=== PATIENT | female | born 1970 | race American Indian/Alaskan Native ===

== ENCOUNTER 2021-02-17 06:03 | Day surgery (SDC) | payer BC ==
[2021-02-14 10:40] LABS: Hematocrit 36.3 % (30.3-42.9); Hemoglobin 11.5 gm/dl (10.1-14.3); Mean Corpuscular HGB Conc 32 % (30-34); Mean Corpuscular Volume 84 fl (79-97); Platelet Count 115 K/mm3 (140-440); Red Cell Distribution Width 18.9 % (13.2-15.2)
[2021-02-14 10:42] LABS: Blood Urea Nitrogen 8 mg/dL (7-17); Calcium 9.6 mg/dL (8.4-10.2); Hemolysis Index 0
[2021-02-14 11:06] LABS: BUN/Creatinine Ratio 20
--- NOTE | 2021-02-14 13:45 | History and Physical Report ---
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 I asked was it fibroids and pt states she was told she had fibroids but also these "growths". She currently c/o having heavier bleeding over the last year prior to covid that has gotten progressively heavier. She is s/p SIS which showed an endometrial mass. Embx was negative for hyperplasia or malignancy. Pt here today for pre op for myosure removal of endometrial mass. She also was noted to have 4 to 5 cm endometrial fibroids that she does not wish to treat at this time surgically but is planning for placment of a Mirena device as she is recenly d/c ocps. All risk/benefits/alternatives were d/w pt and questions were addressed and answered. Consent signed and place on the chart. Vital Signs: Patient Profile: 50 Years Old Female LMP: 01/10/2021 Height: 62 inches Weight: 144 pounds BMI: 26.34 Temp: 97.6 degrees F BP sittin / 80 (left arm) Menstrual History: LMP (date): 01/10/2021 Past History : 5 Term Births: 3 Living Children: 3 Para: 3 Elect. 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 of genital herpes: no Hx of STD: None Active Medications (reviewed today): INHALER () CENTRUM () LO ESTRIN () LAXITIVE PRN () IRON () SIMVASTATIN TABLET (SIMVASTATIN TABS) GLIPIZIDE TABLET (GLIPIZIDE TABS) METFORMIN () Current Allergies (reviewed today): No known allergies Past Medical History: Reviewed history from 01/09/2021 and no changes required: Anemia Diabetes Fibroids Hyperlipidemia Past Surgical History: positive Family History Summary: Reviewed history and no changes required: 02/14/2021 General Comments - FH: DM HTN liver Cirrhosis Social History: Reviewed history from 01/09/2021 and no changes required: Smoking History: Patient has never smoked. 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: other (see hpi) Family/Genetic History: other (see hpi) Social history: other (see hpi) Medications and Allergies Allergies Allergy/AdvReac Type Severity Reaction Status Date / Time No Known Allergies Allergy Unverified 02/12/21 15:48 Home Medications Medication Instructions Recorded Confirmed Last Taken Type Albuterol Mdi (or & Nicu Only) 2 puff PO Q6HR PRN 02/12/21 02/12/21 Unknown History [ProAir HFA Inhaler] Docusate Sodium [Dok] 100 mg PO DAILY PRN 02/12/21 02/12/21 Unknown History Dulaglutide [Trulicity] 1.5 mg SQ 1XW 02/12/21 02/12/21 Unknown History Ferrous Sulfate [Iron 325 MG] 325 mg PO TID 02/12/21 02/12/21 Unknown History Metformin HCl [metFORMIN] 1,000 mg PO BID 02/12/21 02/12/21 Unknown History Simvastatin 10 mg PO HS 02/12/21 02/12/21 Unknown History glipiZIDE [Glucotrol] 10 mg PO QDAY 02/12/21 02/12/21 Unknown History - Vital Signs Vital signs: Vital Signs Temp Pulse Resp BP Pulse Ox 98.6 F 81 20 147/93 99 02/14/21 09:00 02/14/21 09:00 02/14/21 09:00 02/14/21 09:00 02/14/21 09:00 Temp Pulse Resp BP Pulse Ox 98.6 F 81 20 147/93 99 02/14/21 09:00 02/14/21 09:00 02/14/21 09:00 02/14/21 09:00 02/14/21 09:00 - Physical Exam Breasts: Positive: deferred Cardiovascular: Normal S1, Normal S2 Lungs: Positive: Clear to auscultation, Normal air movement Abdomen: Positive: normal appearance, soft. Negative: distention, tenderness, guarding Genitourinary (Female): Positive: other (deferred until EUA) Results Result Diagrams: 02/14/21 06:00 02/14/21 06:00 Abnormal lab results 02/14/21 02/14/21 Range/Units 06:00 06:00 WBC 3.2 L (4.5-11.0) K/mm3 MCH 27 L (28-32) pg RDW 18.9 H (13.2-15.2) % Plt Count 115 L (140-440) K/mm3 Creatinine 0.4 L (0.6-1.2) mg/dL Glucose 105 H (65-100) mg/dL All other labs normal. Assessment and Plan - Patient Problems (1) Menometrorrhagia Status: Acute (2) Endometrial mass Status: Acute Plan to address problem: - to OR for hysteroscopy with myosure -consent signed and placed on the chart
[~2021-02-17 06:03] MED LIST: SODIUM CHLORIDE 0.9% IRR 1,500 ML BOTTLE IR ONE; SODIUM CHLORIDE 0.9% IRRIG SOLN 2000 ML IR ONE; ceFAZolin/Water 2 GM/20 ML 2 GM/20 ML SYRINGE IV NR
[2021-02-17] MEDS ORDERED: LACTATED RINGERS 1,000 ML ONE (06:20)
--- NOTE | 2021-02-17 07:01 | Anesthesia Day of Surgery ---
Anesthesia Day of Surgery - Day of Surgery Patient Examined: Yes Patient H&P Reviewed: Yes Patient is NPO: Yes
--- NOTE | 2021-02-17 07:01 | Anesthesia Consultation ---
Anesthesia Consult and Med Hx Date of service: 02/17/21 - Airway Anesthetic Teeth Evaluation: Good ROM Head & Neck: Adequate Mental/Hyoid Distance: Adequate Mallampati Class: Class II Intubation Access Assessment: Good - Pulmonary Exam CTA: Yes - Cardiac Exam Cardiac Exam: RRR - Pre-Operative Health Status ASA Pre-Surgery Classification: ASA2 Proposed Anesthetic Plan: General - Pulmonary Hx Asthma: Yes (Last used inhaler (approx) within last 2 months) - Central Nervous System Hx Psychiatric Problems: No - Gastrointestinal Hx Gastroesophageal Reflux Disease: Yes - Hematic Hx Anemia: Yes - Other Systems Hx Alcohol Use: Yes (Occas) Hx Cancer: No
[2021-02-17] MEDS ORDERED: LACTATED RINGERS 1,000 ML IV SCH ×2 (07:30→07:45)
[2021-02-17] MEDS ORDERED: SODIUM CHLORIDE 0.9% IRR 1,500 ML BOTTLE IR ONE (07:48)
[2021-02-17] MEDS ORDERED: SODIUM CHLORIDE 0.9% IRRIG SOLN 2000 ML IR ONE (07:48)
[2021-02-17] MEDS ORDERED: propofoL 200 MG/20 ML VIAL IV ONE (07:49)
[2021-02-17] MEDS ORDERED: KETOROLAC 30 MG/1 ML INJ ONE (07:49)
[2021-02-17] MEDS ORDERED: dexAMETHasone 20 MG/5 ML VIAL ONE (07:49)
[2021-02-17] MEDS ORDERED: LIDOCAINE MPF (2%) 20 MG/1 ML VIAL 5 ML ONE (07:49)
[2021-02-17] MEDS ORDERED: MIDAZOLAM 2 MG/2 ML INJ IV NR (08:00)
[2021-02-17] MEDS ORDERED: SODIUM CHLORIDE 0.9% 1000 ML 1,000 ML IV SCH (08:00)
[2021-02-17] MEDS ORDERED: KETAMINE/STERILE WATER 50 MG/ML SYRINGE ONE (08:00)
[2021-02-17] MEDS ORDERED: HYDROmorphone 1 MG/1 ML INJ IV PRN ×2 (08:30)
[2021-02-17] MEDS ORDERED: ONDANSETRON 4 MG/2 ML INJ IV PRN (08:30)
--- NOTE | 2021-02-17 08:40 | Operative Report ---
Operative Report Operative Report: Date of procedure: 02/17/2021 Pre-operative diagnosis: Metrorrhagia Menorrhagia Endometrial mass Post-operative diagnosis: Same Procedure name(s): 1. Hysteroscopy 2. MyoSure Surgeon: Hawa Coronado M.D. Soft Iron Inspector: DAYNE Anesthesia: General anesthesia LMA EBL: Minimal Urine output: 75 cc of clear urine out prior to the onset of the procedure Fluids: 700 mL Findings: Thickened endometrium upon entry and extending to the uterine fundus. Fluid deficit: Approximately 1100 mL Indications: Patient presents with intermenstrual bleeding. Patient was noted on saline infused sonogram to have what appeared an endometrial mass. All risk benefits and alternatives were discussed with the patient. Consents were signed and placed on the chart. Procedure: Patient was taken to the operating room where she was placed under general endotracheal anesthesia she was then prepped and draped in normal sterile fashion in dorsal lithotomy position with legs in Geoff stirrups. Straight catheterization of the bladder was performed at this time. Sterile speculum was placed inside of the vagina to visualize the entire cervix. The anterior lip of the cervix was grasped with a single-tooth tenaculum and the uterus was sounded to 9 cm. The cervix was then dilated in order to allow passage of the hysteroscope. Hysteroscopy yielded the above-stated findings. The Myosure device was then used to suction and remove all thickened tissue of the endometrium. While the uterine fundus was noted the ostia were not clearly seen due to the thickened tissue of the endometrium. At the end of the procedure the integrity of the cavity appeared to be intact without any preparations noted. All instruments were removed from the vagina and the cervix. Patient tolerated the procedure well. All counts were correct.
--- NOTE | 2021-02-17 08:41 | Short Stay Summary ---
Short Stay Documentation Date of service: 02/17/21 - History Social history: other (see hpi) - Allergies and Medications Current Medications: Allergies No Known Allergies Allergy (Unverified 02/12/21 15:48) Home Medications Medication Instructions Recorded Confirmed Last Taken Type Albuterol Mdi (or & Nicu Only) 2 puff PO Q6HR PRN 02/12/21 02/12/21 Unknown History [ProAir HFA Inhaler] Docusate Sodium [Dok] 100 mg PO DAILY PRN 02/12/21 02/17/21 02/16/21 09:00 History Dulaglutide [Trulicity] 1.5 mg SQ 1XW 02/12/21 02/17/21 02/13/21 09:00 History Ferrous Sulfate [Iron 325 MG] 325 mg PO TID 02/12/21 02/17/21 02/16/21 11:00 History Metformin HCl [metFORMIN] 1,000 mg PO BID 02/12/21 02/17/21 02/16/21 11:00 History Simvastatin 10 mg PO HS 02/12/21 02/17/21 02/15/21 20:00 History glipiZIDE [Glucotrol] 10 mg PO QDAY 02/12/21 02/17/21 02/16/21 11:00 History Active Medications Hydromorphone HCl (Hydromorphone 1 Mg/1 Ml Inj) 0.25 mg IV Q10MIN PRN PRN Reason: Pain, Moderate (4-6) Stop: 02/17/21 17:00 Hydromorphone HCl (Hydromorphone 1 Mg/1 Ml Inj) 0.5 mg IV Q10MIN PRN PRN Reason: Pain , Severe (7-10) Stop: 02/17/21 17:00 Cefazolin Sodium (Ancef/Sterile Water 2 Gm/20 Ml) 2 gm in 20 mls @ 80 mls/hr IV PREOP NR; Protocol Stop: 02/17/21 23:59 Lactated Ringer's (Lactated Ringers) 1,000 mls @ 75 mls/hr IV DIRECT ALLYSON Last Admin: 02/17/21 06:50 Dose: 75 mls/hr Documented by: Midazolam HCl (Midazolam 2 Mg/2 Ml Inj) 2 mg IV PREOP NR Stop: 02/17/21 23:59 Last Admin: 02/17/21 07:40 Dose: 2 mg Documented by: Ondansetron HCl (Ondansetron 4 Mg/2 Ml Inj) 4 mg IV ONCE PRN PRN Reason: Nausea And Vomiting Stop: 02/17/21 17:00 - Physical exam Breasts: deferred Neurological: Sensation intact - Brief post op/procedure progress note Date of procedure: 02/17/21 Pre-op diagnosis: metrorrhagia; endometrial mass Post-op diagnosis: same Procedure: Myosure hysteroscopy Anesthesia: other (genneral ; LMA) Findings: SEE OP NOTE Surgeon: KATELIN OAKLEY (\) Estimated blood loss: minimal Pathology: list (ENDOMETRIAL CONTENTS) Specimen disposition: to lab Condition: stable - Hospital course Hospital course: Patient was admitted for above-stated procedure. Patient underwent above-stated procedure that was not complicated. Patient will be discharged home when she has met discharge criteria in the PACU. Patient does have an appointment for postoperative follow-up in the office in 1 week. - Disposition Condition at discharge: Good Disposition: DC- TO HOME OR SELFCARE - Discharge Diagnoses (1) Menometrorrhagia Status: Acute (2) Endometrial mass Status: Acute Short Stay Discharge Plan Activity: no restrictions Weight Bearing Status: Weight Bear as Tolerated Diet: regular Additional Instructions: NOTHING PER VAGINA-NO SEX, NO DOUCHE, NO TAMPOONS,NO BATH.MAY SHOWER AND WASH HAIR. CALL FOR F/U APPT.(RTO IN ONE WEEK) YOU CAN TAKE MOTRIN NEEDED FOR PAIN AFTER 4PM. TODAY Follow up with: ALFONSO LAMA MD [Primary Care Provider] - 7 Days Forms: Outpatient Surgery DC Inst. Prescriptions: Ibuprofen [Motrin 800 MG tab] 800 mg PO Q8HR PRN #30 tablet PRN Reason: Pain, Moderate (4-6)
[2021-02-17 09:22] LABS: Blood Urea Nitrogen 8 mg/dL (7-17); Calcium 8.7 mg/dL (8.4-10.2); Hemolysis Index 12
[2021-02-17 09:25] LABS: BUN/Creatinine Ratio 16
[2021-02-17 09:35] VITALS: BP 145/88
--- NOTE | 2021-02-17 09:44 | Post Anesthesia Evaluation ---
- Post Anesthesia Evaluation Patient Participated: Yes Airway Patent: Yes Stable Respiratory Function: Yes Nausea/Vomiting: No Temp > 96.8F: Yes Pain Manageable: Yes Adequeate Hydration: Yes Anesthesia Complications: No Block Receding Appropriately: Not Applicable Patient on Ventilator: No
== END 2021-02-17 10:20 | disposition home or self-care (01) ==
LOC: OR 06:03
PROVIDERS: ATTEND Obstetrics & Gynecology
DX: N92.0 Excessive and frequent menstruation with regular cycle (principal); Z20.822 Contact with and (suspected) exposure to COVID-19; N85.8 Other specified noninflammatory disorders of uterus; N94.89 Other specified conditions associated with female genital organs and menstrual cycle; E11.9 Type 2 diabetes mellitus without complications; E78.5 Hyperlipidemia, unspecified; J45.909 Unspecified asthma, uncomplicated; K21.9 Gastro-esophageal reflux disease without esophagitis; D64.9 Anemia, unspecified; Z79.899 Other long term (current) drug therapy; Z72.89 Other problems related to lifestyle; Z98.890 Other specified postprocedural states; Z83.3 Family history of diabetes mellitus; Z82.49 Family history of ischemic heart disease and other diseases of the circulatory system
CPT/HCPCS: 36415; 58558; 80048; 82962; 84703; 85027; 88305; A4217; J0690; J1100; J1885; J2250; J2405; J2704; J3490; J7120; U0003